=== PATIENT | male | born 1985 | race Hispanic/Latino ===

== ENCOUNTER 2016-04-27 16:41 | Emergency (ER) | payer SELFPAY ==
[~2016-04-27] VITALS: Ht 170.2 cm; Wt 63.6 kg
[2016-04-27 16:41] VITALS: BP 126/90
[~2016-04-27 16:41] MED LIST: FLOMAX0.4 MG PO; KEFLEX500 MG PO; PERCOCET 5/31 TABLET PO; VICODIN 5-3001 EACH PO
[2016-04-27] MEDS ORDERED: TYLENOL WITH C1 EACH PO (19:34)
== END 2016-04-27 20:16 | disposition home or self-care (01) ==
LOC: EME → EDBD 16:41 → EME 16:41
PROC: 3E0234Z Introduction of Serum, Toxoid and Vaccine into Muscle, Percutaneous Approach (ICD-10-PCS; principal; 2016-04-27)
DX: S09.90XA Unspecified injury of head, initial encounter (principal); S16.1XXA Strain of muscle, fascia and tendon at neck level, initial encounter; S60.511A Abrasion of right hand, initial encounter; S60.221A Contusion of right hand, initial encounter; S50.11XA Contusion of right forearm, initial encounter; S00.31XA Abrasion of nose, initial encounter; Z23 Encounter for immunization; T76.11XA Adult physical abuse, suspected, initial encounter; Y04.0XXA Assault by unarmed brawl or fight, initial encounter; F17.200 Nicotine dependence, unspecified, uncomplicated
CPT/HCPCS: 73090; 73130; 99281; 99284